=== PATIENT | male | born 1925 | race Asian ===

== ENCOUNTER → 2016-05-31 | Emergency (ER) | payer SELFPAY ==
[~2016-05-31] VITALS: Ht 160 cm; Wt 62.0 kg
[~2016-05-31] MED LIST: ALBU18HF INHALATION; AMLO-145 PO; BECL8.7A5 INH; BICA50TA PO; CYCL-319 PO; MONT10TA21 PO
[2016-05-31 14:22] VITALS: Ht 160 cm; Wt 62.0 kg
== END | disposition left against medical advice (07) ==
LOC: E/R 14:08
DX: Z53.21 Procedure and treatment not carried out due to patient leaving prior to being seen by health care provider (principal)

== ENCOUNTER 2016-06-05 15:32 | Emergency (ER) | payer SELFPAY ==
[~2016-06-05] VITALS: Ht 157.5 cm; Wt 64.1 kg
[2016-06-05 15:36] VITALS: Ht 157.5 cm; Wt 64.1 kg
== END 2016-06-05 21:40 | disposition left against medical advice (07) ==
LOC: E/R 15:32
DX: Z53.21 Procedure and treatment not carried out due to patient leaving prior to being seen by health care provider (principal)